=== PATIENT | female | born 1960 | race African-American/Black ===

== ENCOUNTER 2017-07-20 09:47 | Inpatient (IN) ==
[2017-07-20] MEDS ORDERED: PANTOPRAZOLE 40 MG VIAL IV STA (10:51)
[2017-07-20] MEDS ORDERED: SODIUM CHLORIDE 0.9% 500 ML IV STA ×2 (10:51→13:55)
[2017-07-20] MEDS ORDERED: ONDANSETRON 4 MG/2 ML VIAL IV STA ×2 (10:51→13:57)
[2017-07-20] MEDS ORDERED: PANTOPRAZOLE 40 MG VIAL IV ONE (10:56)
[2017-07-20] MEDS ORDERED: ONDANSETRON 4 MG/2 ML VIAL ONE ×2 (10:56→13:59)
[2017-07-20 11:05] LABS: Basophils % 0.7 % (0.0-0.8); Eosinophils # 0.1 10*3/uL (0.0-0.87); Eosinophils % 8.7 % (0.00-10.9); Hematocrit 27.5 VOL% (35.7-47.0); Hemoglobin 9.1 GM/DL (12.0-16.0); Immature Granulocytes % 1.3 %; Immature Granulocytes Absolute 0.02 #; Lymphocytes # 0.5 10*3/uL (1.4-4.0); Mean Corpuscular HGB Conc 33.1 GM/DL (32-36); Mean Corpuscular Hemoglobin 29 PG (27-34); Mean Corpuscular Volume 86.2 FL (87-102); Monocytes # 0.1 10*3/uL (0.11-0.8); Monocytes % 9.3 % (1.7-12.7); Neutrophils # 0.7 10*3/uL (1.4-7.4); Red Blood Count 3.19 MC/CUMM (3.8-5.5); Red Cell Distribution Width 16.8 % (9.3-17.3); White Blood Count 1.5 T/CUMM (4-12)
[2017-07-20 11:24] LABS: Alanine Aminotransferase < 6 U/L (13-56); Albumin 1.5 G/DL (3.4-5.0); Alkaline Phosphatase 69 U/L (45-117); Amylase 3 U/L (25-115); Aspartate Amino Transferase 7 U/L (0-37); Blood Urea Nitrogen 17 MG/DL (7-18); Calcium 7.4 MG/DL (8.5-10.1); Glucose 94 MG/DL (74-106); Magnesium 1.7 MG/DL (1.8-2.4); Osmolality,Calculated 278.5 MOS/KG (273-304); Potassium 3.3 MMOL/L (3.5-5.1); Sodium 139 MMOL/L (136-145); Total Protein 4.6 G/DL (6.4-8.3)
[2017-07-20 11:26] LABS: Troponin I Only 0.272 NG/ML (0.00-0.045)
[2017-07-20 12:13] LABS: Apearance,Urine Clear (Clear); Glucose,Urine (UA) Negative (Negative); Ketones,Urine Negative (Negative); Nitrite,Urine Negative (Negative); Protein,Urine 30 MG/DL; Urine Color Yellow (Yellow); Urine Specific Gravity 1.015 (1.001-1.035)
[2017-07-20 12:14] LABS: Bilirubin,Urine Trace mg/dL (Negative); Blood, Urine Negative (Negative); Urine Urobilinogen 0.2 EU/DL (0.2-1.0)
[2017-07-20 12:15] LABS: Platelet Count 25 T/CUMM (130-400)
[2017-07-20 12:45] LABS: Lymphocytes 26 % (20-55); Segmented Neutrophils 57 % (50-85); Total Cells Counted 100
[2017-07-20 12:46] LABS: Hypochromasia 1+; Microcytosis 1+; Platelet Estimate Decreased
[2017-07-20] MEDS ORDERED: LEVOFLOXACIN INJ 100 ML IV ONE (13:47)
[2017-07-20] MEDS: LEVOFLOXACIN INJ 500 MG in PREMIX 1 EACH IV SCH (13:48)
[2017-07-20] MEDS ORDERED: MORPHINE 2 MG/1 ML SYRINGE IV STA (13:56)
[2017-07-20] MEDS ORDERED: MORPHINE 2 MG/1 ML SYRINGE ONE (13:59)
[2017-07-20] MEDS ORDERED: PROMETHAZINE INJ 25 MG in SODIUM CHLORIDE 0.9% 50 ML IV PRN (15:30)
[2017-07-20] MEDS ORDERED: LACTULOSE 20 GM/30 ML UDCUP PO PRN (15:30)
[2017-07-20] MEDS ORDERED: ALUMINUM/MAGNES/SIMETH MAX STR 30 ML UDCUP PO PRN (15:30)
[2017-07-20] MEDS ORDERED: MYLANTA/LIDO VISC 2:1 300 ML BOTTLE SWISH/SPIT PRN (15:30)
[2017-07-20] MEDS ORDERED: LOPERAMIDE 2 MG CAPSULE PO PRN ×2 (15:30)
[2017-07-20] MEDS ORDERED: SODIUM CHLORIDE 0.9% 1,000 ML IV SCH (15:30)
[2017-07-20] MEDS ORDERED: guaiFENesin 200 MG/10 ML UDCUP PO PRN (15:30)
[2017-07-20] MEDS ORDERED: MYLANTA/LIDO VISC 2:1 300 ML BOTTLE SWISH/SWAL PRN (15:30)
[2017-07-20] MEDS ORDERED: ACETAMINOPHEN 325 MG TABLET PO PRN (15:30)
[2017-07-20] MEDS ORDERED: MAGNESIUM HYDROXIDE SUSP 30 ML UDCUP PO PRN (15:30)
[2017-07-20] MEDS ORDERED: traMADol 50 MG TABLET PO PRN (15:30)
[2017-07-20] MEDS ORDERED: BENZTROPINE 2 MG/2 ML AMP IV PRN (15:30)
[2017-07-20] MEDS ORDERED: ONDANSETRON 4 MG/2 ML VIAL IV PRN (15:30)
[2017-07-20 15:40] LABS: INR 1.4; PT Patient Result 14.4 SECS
[2017-07-20 15:41] LABS: Partial Thromboplastin Time 45.1 SECS (0-40)
[2017-07-20 16:01] LABS: Alanine Aminotransferase < 6 U/L (13-56); Albumin 1.4 G/DL (3.4-5.0); Alkaline Phosphatase 67 U/L (45-117); Aspartate Amino Transferase 10 U/L (0-37); Blood Urea Nitrogen 15 MG/DL (7-18); Calcium 6.8 MG/DL (8.5-10.1); Glucose 101 MG/DL (74-106); Osmolality,Calculated 275.7 MOS/KG (273-304); Potassium 3.1 MMOL/L (3.5-5.1); Sodium 138 MMOL/L (136-145); Total Protein 4.2 G/DL (6.4-8.3)
[2017-07-20 16:17] LABS: Magnesium 1.6 MG/DL (1.8-2.4); Uric Acid 8.9 MG/DL (2.6-6.0)
[2017-07-20] MEDS ORDERED: ONDANSETRON 4 MG TABLET PO PRN (16:36)
[2017-07-20] MEDS: FILGRASTIM-SNDZ 300 MCG/0.5 ML SYRINGE SUBCUT SCH (18:19)
[2017-07-20] MEDS: SODIUM CHLOR 0.9% KCL 20 MEQ 20 MEQ/1,000 ML BAG IV SCH (18:19)
[2017-07-20] MEDS: fentaNYL 75 MCG/HR PATCH TRANSDERM SCH (18:19)
[2017-07-20] MEDS: levETIRAcetam 500 MG TABLET PO SCH (20:29)
[2017-07-21] MEDS: HYDROmorphone 2 MG/1 ML VIAL IV PRN ×3 (00:11→21:17)
[2017-07-21] MEDS: SODIUM CHLOR 0.9% KCL 20 MEQ 20 MEQ/1,000 ML BAG IV SCH (04:26)
[2017-07-21 04:49] LABS: Eosinophils # 0.1 10*3/uL (0.0-0.87); Eosinophils % 8.8 % (0.00-10.9); Hemoglobin 7.8 GM/DL (12.0-16.0); Immature Granulocytes % 0.7 %; Immature Granulocytes Absolute 0.01 #; Lymphocytes # 0.5 10*3/uL (1.4-4.0); Lymphocytes % 33.1 % (21.3-54.2); Mean Corpuscular HGB Conc 32.5 GM/DL (32-36); Mean Corpuscular Hemoglobin 29 PG (27-34); Mean Corpuscular Volume 87.6 FL (87-102); Monocytes # 0.3 10*3/uL (0.11-0.8); Monocytes % 17.6 % (1.7-12.7); Neutrophils # 0.6 10*3/uL (1.4-7.4); Neutrophils % 39.8 % (38.7-73.9); Red Blood Count 2.74 MC/CUMM (3.8-5.5); Red Cell Distribution Width 16.8 % (9.3-17.3); White Blood Count 1.5 T/CUMM (4-12)
[2017-07-21 05:07] LABS: Platelet Count 26 T/CUMM (130-400)
[2017-07-21 05:16] LABS: Alanine Aminotransferase < 6 U/L (13-56); Albumin 1.4 G/DL (3.4-5.0); Alkaline Phosphatase 65 U/L (45-117); Aspartate Amino Transferase 10 U/L (0-37); Blood Urea Nitrogen 15 MG/DL (7-18); Calcium 6.9 MG/DL (8.5-10.1); Glucose 71 MG/DL (74-106); Osmolality,Calculated 277.4 MOS/KG (273-304); Potassium 3.8 MMOL/L (3.5-5.1); Sodium 140 MMOL/L (136-145); Total Protein 4.1 G/DL (6.4-8.3)
[2017-07-21 05:53] LABS: Eosinophils 6 % (0-10); Lymphocytes 8 % (20-55); Segmented Neutrophils 74 % (50-85); Total Cells Counted 100
[2017-07-21 05:54] LABS: Burr Cells Few; Hypochromasia 1+; Microcytosis 1+; Platelet Estimate Decreased
[2017-07-21] MEDS ORDERED: SODIUM CHLORIDE 0.9% 1,000 ML IV PRN (08:12)
[2017-07-21] MEDS: levETIRAcetam 500 MG TABLET PO SCH ×2 (10:00→20:20)
[2017-07-21] MEDS: FILGRASTIM-SNDZ 300 MCG/0.5 ML SYRINGE SUBCUT SCH (10:02)
[2017-07-21] MEDS: FLUCONAZOLE INJ 200 MG in PREMIX 1 EACH IV SCH (10:03)
[2017-07-21] MEDS: PANTOPRAZOLE 40 MG VIAL IV SCH (10:03)
[2017-07-21] MEDS: LEVOFLOXACIN INJ 500 MG in PREMIX 1 EACH IV SCH (20:28)
[2017-07-21] MEDS: TEMAZEPAM 7.5 MG CAPSULE PO PRN (21:16)
[2017-07-22] MEDS: SODIUM CHLOR 0.9% KCL 20 MEQ 20 MEQ/1,000 ML BAG IV SCH ×2 (00:11→13:23)
[2017-07-22] MEDS: diphenhydrAMINE CAP 25 MG CAPSULE PO PRN (00:57)
[2017-07-22] MEDS: HYDROmorphone 2 MG/1 ML VIAL IV PRN ×2 (04:47→20:55)
[2017-07-22 05:03] LABS: Basophils % 0.6 % (0.0-0.8); Eosinophils # 0.2 10*3/uL (0.0-0.87); Eosinophils % 7.1 % (0.00-10.9); Hematocrit 36.5 VOL% (35.7-47.0); Immature Granulocytes % 7.1 %; Immature Granulocytes Absolute 0.24 #; Lymphocytes # 0.8 10*3/uL (1.4-4.0); Lymphocytes % 22.4 % (21.3-54.2); Mean Corpuscular HGB Conc 33.7 GM/DL (32-36); Mean Corpuscular Hemoglobin 30 PG (27-34); Mean Corpuscular Volume 87.7 FL (87-102); Monocytes # 0.8 10*3/uL (0.11-0.8); Monocytes % 22.6 % (1.7-12.7); NRBC # 0.07 10*3/uL; Neutrophils # 1.4 10*3/uL (1.4-7.4); Neutrophils % 40.2 % (38.7-73.9); Red Cell Distribution Width 15.8 % (9.3-17.3)
[2017-07-22 05:06] LABS: Red Blood Count 4.16 MC/CUMM (3.8-5.5); White Blood Count 3.4 T/CUMM (4-12)
[2017-07-22 05:07] LABS: Hemoglobin 12.3 GM/DL (12.0-16.0); Platelet Count 36 T/CUMM (130-400)
[2017-07-22 05:36] LABS: Alanine Aminotransferase < 6 U/L (13-56); Albumin 1.4 G/DL (3.4-5.0); Alkaline Phosphatase 90 U/L (45-117); Aspartate Amino Transferase 9 U/L (0-37); Blood Urea Nitrogen 10 MG/DL (7-18); Glucose 69 MG/DL (74-106); Magnesium 1.4 MG/DL (1.8-2.4); Osmolality,Calculated 275.4 MOS/KG (273-304); Sodium 140 MMOL/L (136-145); Total Protein 4.2 G/DL (6.4-8.3)
[2017-07-22 05:43] LABS: Band Neutrophils 5 % (0-10); Burr Cells Slight; Eosinophils 5 % (0-10); Giant Platelets Few; Hypochromasia 1+; Lymphocytes 17 % (20-55); Microcytosis Slight; Nucleated Red Blood Cells 4 (0-5); Ovalocytes Slight; Platelet Estimate Decreased; Segmented Neutrophils 54 % (50-85); Total Cells Counted 100
[2017-07-22] MEDS: levETIRAcetam 500 MG TABLET PO SCH ×2 (10:04→20:55)
[2017-07-22] MEDS: MAGNESIUM OXIDE 400 MG TABLET PO SCH ×2 (10:05→20:55)
[2017-07-22] MEDS: FLUCONAZOLE INJ 200 MG in PREMIX 1 EACH IV SCH (10:05)
[2017-07-22] MEDS: FILGRASTIM-SNDZ 300 MCG/0.5 ML SYRINGE SUBCUT SCH (10:06)
[2017-07-22] MEDS: PANTOPRAZOLE 40 MG VIAL IV SCH (10:06)
[2017-07-22] MEDS ORDERED: RIVAROXABAN 20 MG TABLET PO ONE (10:55)
[2017-07-22] MEDS ORDERED: ZINC OXIDE PASTE 113 GM TUBE TOP PRN (14:41)
[2017-07-22] MEDS ORDERED: RIVAROXABAN 20 MG TABLET PO SCH (17:00)
[2017-07-22] MEDS: LEVOFLOXACIN INJ 500 MG in PREMIX 1 EACH IV SCH (21:05)
[2017-07-23] MEDS: HYDROmorphone 2 MG/1 ML VIAL IV PRN ×3 (01:42→16:17)
[2017-07-23] MEDS: TEMAZEPAM 7.5 MG CAPSULE PO PRN ×2 (01:51→22:26)
[2017-07-23] MEDS: ALPRAZolam 0.25 MG TABLET PO PRN ×3 (01:51→22:29)
[2017-07-23] MEDS: SODIUM CHLOR 0.9% KCL 20 MEQ 20 MEQ/1,000 ML BAG IV SCH ×2 (04:58→16:21)
[2017-07-23 07:17] LABS: Basophils % 0.2 % (0.0-0.8); Eosinophils # 0.6 10*3/uL (0.0-0.87); Eosinophils % 3.2 % (0.00-10.9); Hematocrit 41.6 VOL% (35.7-47.0); Hemoglobin 13.3 GM/DL (12.0-16.0); Immature Granulocytes % 2.9 %; Immature Granulocytes Absolute 0.52 #; Lymphocytes % 11.1 % (21.3-54.2); Mean Corpuscular Hemoglobin 29 PG (27-34); Mean Corpuscular Volume 91.6 FL (87-102); Monocytes # 2.2 10*3/uL (0.11-0.8); Monocytes % 12.6 % (1.7-12.7); NRBC # 0.23 10*3/uL; Neutrophils # 12.4 10*3/uL (1.4-7.4); Red Blood Count 4.54 MC/CUMM (3.8-5.5); Red Cell Distribution Width 16.5 % (9.3-17.3); White Blood Count 17.7 T/CUMM (4-12)
[2017-07-23 07:18] LABS: Platelet Count 55 T/CUMM (130-400)
[2017-07-23 07:45] LABS: Calcium 7.3 MG/DL (8.5-10.1); Magnesium 1.5 MG/DL (1.8-2.4); Osmolality,Calculated 274.7 MOS/KG (273-304); Potassium 4.7 MMOL/L (3.5-5.1)
[2017-07-23 08:05] LABS: Band Neutrophils 12 % (0-10); Burr Cells Slight; Eosinophils 2 % (0-10); Lymphocytes 10 % (20-55); Ovalocytes Slight; Platelet Estimate Decreased; Segmented Neutrophils 67 % (50-85); Total Cells Counted 100
[2017-07-23 08:06] LABS: Giant Platelets Few; Hypochromasia Slight; Microcytosis Slight
[2017-07-23] MEDS: PANTOPRAZOLE 40 MG VIAL IV SCH (09:08)
[2017-07-23] MEDS: FLUCONAZOLE INJ 200 MG in PREMIX 1 EACH IV SCH (09:09)
[2017-07-23] MEDS: levETIRAcetam 500 MG TABLET PO SCH ×2 (09:11→21:07)
[2017-07-23] MEDS: FILGRASTIM-SNDZ 300 MCG/0.5 ML SYRINGE SUBCUT SCH ×2 (09:12→09:17)
[2017-07-23] MEDS: MAGNESIUM OXIDE 400 MG TABLET PO SCH (09:12)
[2017-07-23] MEDS: RIVAROXABAN 15 MG TABLET PO SCH (12:43)
[2017-07-23] MEDS: diphenhydrAMINE CAP 25 MG CAPSULE PO PRN (12:43)
[2017-07-23] MEDS: fentaNYL 75 MCG/HR PATCH TRANSDERM SCH (16:19)
[2017-07-24] MEDS: diphenhydrAMINE CAP 25 MG CAPSULE PO PRN (02:02)
[2017-07-24] MEDS: ALPRAZolam 0.25 MG TABLET PO PRN (04:18)
[2017-07-24] MEDS: HYDROmorphone 2 MG/1 ML VIAL IV PRN ×5 (05:53→23:59)
[2017-07-24 06:01] LABS: Basophils % 0.1 % (0.0-0.8); Eosinophils # 0.6 10*3/uL (0.0-0.87); Eosinophils % 1.8 % (0.00-10.9); Hematocrit 37.5 VOL% (35.7-47.0); Hemoglobin 12.3 GM/DL (12.0-16.0); Immature Granulocytes % 6.7 %; Immature Granulocytes Absolute 2.12 #; Lymphocytes # 1.7 10*3/uL (1.4-4.0); Lymphocytes % 5.3 % (21.3-54.2); Mean Corpuscular HGB Conc 32.8 GM/DL (32-36); Mean Corpuscular Hemoglobin 30 PG (27-34); Mean Corpuscular Volume 90.4 FL (87-102); Monocytes # 2.2 10*3/uL (0.11-0.8); NRBC # 0.35 10*3/uL; Neutrophils # 24.8 10*3/uL (1.4-7.4); Neutrophils % 79.1 % (38.7-73.9); Red Blood Count 4.15 MC/CUMM (3.8-5.5); Red Cell Distribution Width 16.7 % (9.3-17.3); White Blood Count 31.5 T/CUMM (4-12)
[2017-07-24 06:02] LABS: Platelet Count 55 T/CUMM (130-400)
[2017-07-24] MEDS: SODIUM CHLOR 0.9% KCL 20 MEQ 20 MEQ/1,000 ML BAG IV SCH ×2 (06:10→20:07)
[2017-07-24 08:26] LABS: Band Neutrophils 31 % (0-10); Burr Cells 2+; Hypochromasia 2+; Lymphocytes 3 % (20-55); Microcytosis 2+; Platelet Estimate Decreased; Segmented Neutrophils 59 % (50-85); Total Cells Counted 100
[2017-07-24] MEDS: RIVAROXABAN 15 MG TABLET PO SCH (09:09)
[2017-07-24] MEDS: PANTOPRAZOLE 40 MG VIAL IV SCH (09:09)
[2017-07-24] MEDS: levETIRAcetam 500 MG TABLET PO SCH ×2 (09:10→20:03)
[2017-07-25] MEDS: LORazepam 2 MG/1 ML VIAL IV PRN ×3 (03:21→23:32)
[2017-07-25 04:48] LABS: Basophils % 0.1 % (0.0-0.8); Eosinophils # 0.3 10*3/uL (0.0-0.87); Eosinophils % 0.8 % (0.00-10.9); Hematocrit 35.4 VOL% (35.7-47.0); Hemoglobin 11.2 GM/DL (12.0-16.0); Immature Granulocytes % 6.1 %; Immature Granulocytes Absolute 2.52 #; Lymphocytes # 1.2 10*3/uL (1.4-4.0); Mean Corpuscular HGB Conc 31.6 GM/DL (32-36); Mean Corpuscular Hemoglobin 29 PG (27-34); Mean Corpuscular Volume 91.9 FL (87-102); Mean Platelet Volume 11.9 FL (9.6-12.0); Monocytes % 4.8 % (1.7-12.7); NRBC # 0.34 10*3/uL; Neutrophils % 85.2 % (38.7-73.9); Platelet Count 69 T/CUMM (130-400); Red Blood Count 3.85 MC/CUMM (3.8-5.5); Red Cell Distribution Width 17.1 % (9.3-17.3)
[2017-07-25 04:55] LABS: White Blood Count 41.1 T/CUMM (4-12)
[2017-07-25 06:51] LABS: Band Neutrophils 14 % (0-10); Lymphocytes 3 % (20-55); Myelocytes 1 %; Nucleated Red Blood Cells 2 (0-5); Segmented Neutrophils 81 % (50-85); Total Cells Counted 100
[2017-07-25 06:52] LABS: Anisocytosis 1+; Platelet Estimate Decreased; Polychromasia 1+
[2017-07-25] MEDS: RIVAROXABAN 15 MG TABLET PO SCH (08:23)
[2017-07-25] MEDS: levETIRAcetam 500 MG TABLET PO SCH ×3 (08:23→22:33)
[2017-07-25] MEDS: HYDROmorphone 2 MG/1 ML VIAL IV PRN (08:23)
[2017-07-25] MEDS: PANTOPRAZOLE 40 MG VIAL IV SCH (08:24)
[2017-07-25] MEDS: SODIUM CHLOR 0.9% KCL 20 MEQ 20 MEQ/1,000 ML BAG IV SCH (08:24)
[2017-07-25] MEDS ORDERED: FUROSEMIDE 40 MG/4 ML VIAL IV ONE (08:27)
[2017-07-25] MEDS ORDERED: methylPREDNISolone SOD SUC 40 MG/1 ML VIAL IV ONE (08:28)
[2017-07-25] MEDS: ALBUTEROL/IPRATROPIUM 3 ML NEB RESP TX SCH ×5 (11:15→23:24)
[2017-07-26] MEDS: HYDROmorphone 2 MG/1 ML VIAL IV PRN (01:20)
[2017-07-26 03:22] LABS: Basophils % 0.1 % (0.0-0.8); Eosinophils % 0.1 % (0.00-10.9); Hemoglobin 10.9 GM/DL (12.0-16.0); Immature Granulocytes % 4.7 %; Immature Granulocytes Absolute 2.37 #; Lymphocytes # 0.8 10*3/uL (1.4-4.0); Lymphocytes % 1.5 % (21.3-54.2); Mean Corpuscular HGB Conc 31.1 GM/DL (32-36); Mean Corpuscular Hemoglobin 29 PG (27-34); Mean Corpuscular Volume 94.1 FL (87-102); Mean Platelet Volume 12.3 FL (9.6-12.0); NRBC # 0.41 10*3/uL; Neutrophils # 46.3 10*3/uL (1.4-7.4); Neutrophils % 91.6 % (38.7-73.9); Platelet Count 111 T/CUMM (130-400); Red Blood Count 3.72 MC/CUMM (3.8-5.5); Red Cell Distribution Width 17.6 % (9.3-17.3)
[2017-07-26 03:25] LABS: White Blood Count 50.5 T/CUMM (4-12)
[2017-07-26] MEDS: ALBUTEROL/IPRATROPIUM 3 ML NEB RESP TX SCH ×5 (04:03→19:39)
[2017-07-26 04:22] LABS: Band Neutrophils 12 % (0-10); Lymphocytes 2 % (20-55); Metamyelocytes 1 %; Myelocytes 2 %; Nucleated Red Blood Cells 3 (0-5); Segmented Neutrophils 83 % (50-85); Total Cells Counted 100
[2017-07-26 04:23] LABS: Platelet Estimate Decreased
[2017-07-26] MEDS: levETIRAcetam 500 MG TABLET PO SCH ×2 (08:50→21:10)
[2017-07-26] MEDS ORDERED: HYDROmorphone 2 MG/1 ML VIAL IV PRN (09:27)
[2017-07-26] MEDS ORDERED: LORazepam 2 MG/1 ML VIAL IV PRN (09:27)
[2017-07-26] MEDS ORDERED: DEXTROSE 5% NACL 0.45% 1,000 ML IV SCH ×2 (09:30→21:50)
[2017-07-26] MEDS ORDERED: LEVOFLOXACIN INJ 500 MG in PREMIX 1 EACH IV SCH (09:30)
[2017-07-26] MEDS: PANTOPRAZOLE 40 MG VIAL IV SCH (09:53)
[2017-07-26] MEDS: ACETAMINOPHEN 650 MG SUPP RECTAL PRN (14:35)
[2017-07-26] MEDS: fentaNYL 75 MCG/HR PATCH TRANSDERM SCH (17:09)
[2017-07-26] MEDS ORDERED: SODIUM CHLORIDE 0.9% 1,000 ML IV ONE (20:29)
[2017-07-27] MEDS: ALBUTEROL/IPRATROPIUM 3 ML NEB RESP TX SCH ×3 (00:10→07:26)
[2017-07-27] MEDS: ACETAMINOPHEN 650 MG SUPP RECTAL PRN (02:22)
[2017-07-27 05:39] LABS: Eosinophils % 0.1 % (0.00-10.9); Hematocrit 31.7 VOL% (35.7-47.0); Hemoglobin 9.3 GM/DL (12.0-16.0); Immature Granulocytes % 6.7 %; Immature Granulocytes Absolute 4.41 #; Lymphocytes # 0.8 10*3/uL (1.4-4.0); Lymphocytes % 1.3 % (21.3-54.2); Mean Corpuscular HGB Conc 29.3 GM/DL (32-36); Mean Corpuscular Hemoglobin 30 PG (27-34); Mean Corpuscular Volume 102.9 FL (87-102); Mean Platelet Volume 12.3 FL (9.6-12.0); Monocytes # 2.4 10*3/uL (0.11-0.8); Monocytes % 3.6 % (1.7-12.7); Neutrophils # 58.1 10*3/uL (1.4-7.4); Neutrophils % 88.3 % (38.7-73.9); Platelet Count 77 T/CUMM (130-400); Red Blood Count 3.08 MC/CUMM (3.8-5.5); Red Cell Distribution Width 18.6 % (9.3-17.3)
[2017-07-27 05:44] LABS: White Blood Count 65.8 T/CUMM (4-12)
[2017-07-27 05:58] LABS: Band Neutrophils 4 % (0-10); Hypochromasia 1+; Lymphocytes 1 % (20-55); Myelocytes 2 %; Nucleated Red Blood Cells 3 (0-5); Platelet Estimate Decreased; Segmented Neutrophils 89 % (50-85); Total Cells Counted 100
[2017-07-27 06:00] LABS: Albumin 1.3 G/DL (3.4-5.0); Bilirubin,Total 0.6 MG/DL (0.2-1.0); Burr Cells Slight; Calcium 7.3 MG/DL (8.5-10.1); Osmolality,Calculated 298.8 MOS/KG (273-304); Ovalocytes Slight; Total Protein 3.7 G/DL (6.4-8.3)
[2017-07-27 06:01] LABS: Giant Platelets Few; Polychromasia Slight
[2017-07-27 06:02] LABS: Blood Urea Nitrogen 38 MG/DL (7-18); Calcium 7.1 MG/DL (8.5-10.1); Glucose 172 MG/DL (74-106); Magnesium 2.2 MG/DL (1.8-2.4); Prealbumin < 3.0 MG/DL (20-40); Sodium 143 MMOL/L (136-145)
[2017-07-27 06:06] LABS: Potassium 7.3 MMOL/L (3.5-5.1)
[2017-07-27 06:46] VITALS: BP 51/25
[2017-07-27] MEDS ORDERED: SODIUM CHLORIDE 0.45% 1,000 ML IV SCH (07:30)
== END 2017-07-27 07:45 | disposition expired | DRG 809 ==
LOC: EDBD → EDUNIT# → EDSEX → N.ED 09:47 → N.EDINP 13:45 → N.4E 14:40
PROVIDERS: ADMIT Specialist; ATTEND Specialist